=== PATIENT | female | born 1990 | race Caucasian/White ===

== ENCOUNTER 2019-03-01 07:18 | Inpatient (IN) | payer MEDICAID ==
[2019-03-01] MEDS ORDERED: Nalbuphine 20 MG/ML 1 ML Syringe IVPUSH PRN (07:20)
[2019-03-01] MEDS ORDERED: Ondansetron 4 MG/2 ML SDV IVPUSH PRN (07:20)
[2019-03-01] MEDS ORDERED: Sodium Chloride 0.9% 10 ML Syringe FLUSH PRN (07:20)
--- NOTE | 2019-03-01 07:23 | PCM.LDHP ---
L&D History of Present Illness - General Date of Service: 03/01/19 Admit Problem/Dx: Patient Status Order with Admit Dx/Problem 03/01/19 07:20 Patient Status [ADT] Routine Admission Diagnosis/Problem Admission Diagnosis/Problem Normal in third trimester Source of Information: Patient History Limitations: Reports: No Limitations - History of Present Illness Introduction:: Patient is a 28 y/o at 39 1/7 wks who presents for elective IOL. Doing well today. No major concerns or complaints - Related Data Allergies/Adverse Reactions: Allergies Allergy/AdvReac Type Severity Reaction Status Date / Time No Known Allergies Allergy Verified 03/01/19 09:54 Past Medical History - Past Health History Medical/Surgical History: Denies Medical/Surgical History [employer] History: Reports: : 2 Para: 1 LMP (Approximate): Social & Family History - Tobacco Use Smoking Status *Q: Never Smoker - Alcohol Use Alcohol Use History: No - Recreational Drug Use Recreational Drug Use: No H&P Review of Systems - Review of Systems: Review Of Systems: See Below General: Reports: No Symptoms Pulmonary: Reports: No Symptoms Cardiovascular: Reports: No Symptoms Gastrointestinal: Reports: No Symptoms Genitourinary: Reports: No Symptoms Musculoskeletal: Reports: No Symptoms Psychiatric: Reports: No Symptoms Neurological: Reports: No Symptoms L&D Exam - Exam Exam: See Below - OB Specific Contraction Intensity: Irritability Movement: Active Heart Tones: Present Heart Tones per Min: 135 Heart Rate (FHR) Variability: Moderate (6-25 bmp) Presentation: Vertex - Romero Score Romero Score Cervix Position: Posterior Romero Score Consistency: Medium Romero Score Effacement: 51-70% Romero Score Dilation: 3-4 cm Romero Score Infant's Station: -2 Romero Score Total: 6 - Exam General: Alert, Oriented, Cooperative Lungs: Clear to Auscultation, Normal Respiratory Effort Cardiovascular: Regular Rate, Regular Rhythm GI/Abdominal Exam: Soft, Non-Tender Genitourinary: Normal external exam Extremities: Normal Inspection Skin: Warm, Dry, Intact - Patient Data Result Diagrams: 03/01/19 07:35 - Problem List (1) 39 weeks gestation of SNOMED Code(s): 13928814 ICD Code: Z3A.39 - 39 WEEKS GESTATION OF Status: Acute Current Visit: Yes Problem List Initiated/Reviewed/Updated: Yes Orders Last 24hrs: Active Orders 24 hr Category Date Time Status Patient Status [ADT] Routine ADT 03/01/19 07:20 Ordered Activity as Tolerated [RC] PFP Care 03/01/19 07:20 Ordered Communication Order [RC] ASDIRECTED Care 03/01/19 07:20 Ordered Communication Order [RC] ASDIRECTED Care 03/01/19 07:20 Ordered Communication Order [RC] ASDIRECTED Care 03/01/19 07:20 Ordered Heart Tones [RC] ASDIRECTED Care 03/01/19 07:21 Ordered Monitoring [RC] INTERMITTENT Care 03/01/19 07:20 Ordered Non Stress Test [RC] PER UNIT ROUTINE Care 03/01/19 07:20 Ordered Non Stress Test [RC] PER UNIT ROUTINE Care 03/01/19 07:20 Ordered Notify Provider [RC] ASDIRECTED Care 03/01/19 07:20 Ordered Notify Provider [RC] PRN Care 03/01/19 07:20 Ordered Peripheral IV Care [RC] . DIRECTED Care 03/01/19 07:21 Ordered Vaginal Exam [RC] ASDIRECTED Care 03/01/19 07:20 Ordered Vital Signs [RC] PER UNIT ROUTINE Care 03/01/19 07:20 Ordered Regular Diet [DIET] Diet 03/01/19 Breakfast Ordered CBC W/O DIFF,HEMOGRAM [HEME] Routine Lab 03/01/19 07:20 Ordered RAPID PLASMA REAGIN,RPR [CHEM] Routine Lab 03/01/19 07:20 Ordered TYPE AND SCREEN [BBK] Routine Lab 03/01/19 07:20 Ordered Lactated Ringers [Ringers, Lactated] 1,000 ml Med 03/01/19 07:30 Ordered IV ASDIRECTED Nalbuphine [Nubain] Med 03/01/19 07:20 Ordered 10 mg IVPUSH Q2H PRN Ondansetron [Zofran] Med 03/01/19 07:20 Ordered 4 mg IVPUSH Q4H PRN Oxytocin/Lactated Ringers [Pitocin in LR 10 Units/1,000 Med 03/01/19 07:30 Ordered ML] 10 unit in 1,000 ml IV .CONTINUOUS Oxytocin/Lactated Ringers [Pitocin in LR 10 Units/1,000 Med 03/01/19 07:30 Ordered ML] 10 unit in 1,000 ml IV TITRATE Sodium Chloride 0.9% [Saline Flush] Med 03/01/19 07:20 Ordered 10 ml FLUSH ASDIRECTED PRN Electronic Heart Tones Ext w TOCO [WOMSER] Oth 03/01/19 07:20 Ordered Routine Electronic Heart Tones Internal [WOMSER] Per Unit Ot 03/01/19 07:20 Ordered Routine Peripheral IV Insertion Adult [OM.PC] Routine Oth 03/01/19 07:20 Ordered Resuscitation Status Routine Resus Stat 03/01/19 07:20 Ordered Assessment/Plan Comment:: 28 y/o at 39 1/7 wks presents for IOL * Labs * GBS negative * Pitocin and AROM for IOL * Pain management per patient preference * Anticipate
[2019-03-01] MEDS ORDERED: Oxytocin/Lactated Ringers 10 UNIT/1,000 ML BAG IV SCH ×2 (07:30→10:00)
[2019-03-01] MEDS: Lactated Ringers 1,000 ML IV SCH ×2 (10:14→12:55)
[2019-03-01] MEDS ORDERED: fentaNYL 100 MCG/2 ML SDV EPIDUR PRN (12:51)
[2019-03-01] MEDS ORDERED: ePHEDrine 50 MG/ML SDV IVPUSH PRN (12:51)
[2019-03-01] MEDS ORDERED: diphenhydrAMINE 50 MG/ML SDV IVPUSH PRN (12:51)
[2019-03-01] MEDS ORDERED: fentaNYL/Bupivacaine-NS 2 MCG/ML-0.125%/PF 100 ML Bag EPIDUR ONE (12:51)
--- NOTE | 2019-03-01 13:38 | PCM.PREANE ---
Preanesthetic Assessment - Anesthesia/Transfusion/Family Hx Anesthesia History: No Prior Anesthesia Type of Anesthesia Reaction: Unknown Family History of Anesthesia Reaction: No Transfusion History: No Prior Transfusion(s) Intubation History: Unknown - Review of Systems General: No Symptoms Pulmonary: No Symptoms Cardiovascular: No Symptoms Gastrointestinal: No Symptoms Neurological: No Symptoms Other: Reports: None - Physical Assessment NPO Status Date: 03/01/19 NPO Status Time: 00:00 Pulse: 72 O2 Sat by Pulse Oximetry: 100 Respiratory Rate: 20 Blood Pressure: 128/74 Height: 1.73 m Weight: 87.453 kg - Lab Values: Laboratory Last Values WBC 9.09 K/mm3 (3.98-10.04) 03/01/19 07:35 RBC 4.17 M/mm3 (3.98-5.22) 03/01/19 07:35 Hgb 11.7 gm/L (11.2-15.7) 03/01/19 07:35 Hct 35.1 % (34.1-44.9) 03/01/19 07:35 MCV 84.2 fl (79.4-94.8) 03/01/19 07:35 MCH 28.1 pg (25.6-32.2) 03/01/19 07:35 MCHC 33.3 g/dl (32.2-35.5) 03/01/19 07:35 RDW Std Deviation 42.5 fL (36.4-46.3) 03/01/19 07:35 Plt Count 157 K/mm3 (182-369) L 03/01/19 07:35 MPV 10.2 fl (9.4-12.3) 03/01/19 07:35 Blood Type O POSITIVE 03/01/19 07:35 Gel Antibody Screen Negative 03/01/19 07:35 - Allergies Allergies/Adverse Reactions: Allergies Allergy/AdvReac Type Severity Reaction Status Date / Time No Known Allergies Allergy Verified 03/01/19 09:54 PreAnesthesia Questionnaire - CURRENT (IN HOUSE) MEDS Current Meds: Current Medications Diphenhydramine HCl (Benadryl) 25 mg IVPUSH Q6H PRN PRN Reason: Pruritis Ephedrine Sulfate (Ephedrine Sulfate) 5 mg IVPUSH ONETIME PRN PRN Reason: Hypotension Fentanyl (Sublimaze) 100 mcg EPIDUR Q3H PRN PRN Reason: Pain Lactated Ringer's (Ringers, Lactated) 1,000 mls @ 40 mls/hr IV ASDIRECTED CELSA Last Admin: 03/01/19 12:55 Dose: 40 mls/hr Oxytocin/Lactated Ringer's (Pitocin In Lr 10 Units/1,000 Ml) 10 unit in 1,000 mls @ 12 mls/hr IV TITRATE CELSA; Protocol Last Titration: 03/01/19 12:47 Dose: 2 munits/min, 12 mls/hr Oxytocin/Lactated Ringer's (Pitocin In Lr 10 Units/1,000 Ml) 10 unit in 1,000 mls @ 500 mls/hr IV .CONTINUOUS CELSA Nalbuphine HCl (Nubain) 10 mg IVPUSH Q2H PRN PRN Reason: pain Ondansetron HCl (Zofran) 4 mg IVPUSH Q4H PRN PRN Reason: Nausea/Vomiting Sodium Chloride (Saline Flush) 10 ml FLUSH ASDIRECTED PRN PRN Reason: Keep Vein Open Discontinued Medications Fentanyl/Bupivacaine HCl (Vfojjnyg-Zdimp-Zu 2 Mcg/Ml-0.125%) 100 ml EPIDUR ONETIME ONE Stop: 03/01/19 12:52
--- NOTE | 2019-03-01 16:36 | PCM.DEL ---
L & D Note - General Info Date of Service: 03/01/19 - Delivery Note Labor: Induced by ARM, Induced by Oxytocin Delivery Outcome: Livebirth Infant Delivery Method: Spontaneous Vaginal Delivery-Single Infant Delivery Mode: Spontaneous Presentation: Left Occiput Anterior (JENNIFER) Nuchal Cord: None Anesthesia Type: Epidural Amniotic Fluid Description: Clear Episiotomy Type: None Laceration: 2nd Degree, Perineal Suture type: Vicryl Suture size: 2-0 Placenta: Intact, Spontaneous Cord: 3 Vessels Estimated Blood Loss: 300 Resuscitation Needed: Yes [place]: Bulb Syringe, Stimulated, Warmed, [place] Used, Warmer Used Delivery Comments (Free Text/Narrative):: Patient found to be complete and began pushing. With maternal pushing effort head delivered from JENNIFER presentation. No nuchal cord present. With gentle downward traction the shoulders and body delivered. placed on maternal abdomen. Cord clamped and cut. Placenta allowed time to separate and expelled intact. Inspection of the perineum showed a 2nd degree laceration which was repaired with a 2-0 vicryl in the typical fashion. - General Info Date of Service: 03/01/19 - Patient Data Vitals - Most Recent: Last Vital Signs Temp Pulse 72 03/01/19 13:37 Resp 20 03/01/19 13:37 BP 128/74 03/01/19 13:37 Pulse Ox 100 03/01/19 13:37 Weight - Most Recent: 87.453 kg Lab Results Last 24 Hours: Laboratory Results - last 24 hr 03/01/19 03/01/19 Range/Units 07:35 07:35 WBC 9.09 (3.98-10.04) K/mm3 RBC 4.17 (3.98-5.22) M/mm3 Hgb 11.7 (11.2-15.7) gm/L Hct 35.1 (34.1-44.9) % MCV 84.2 (79.4-94.8) fl MCH 28.1 (25.6-32.2) pg MCHC 33.3 (32.2-35.5) g/dl RDW Std Deviation 42.5 (36.4-46.3) fL Plt Count 157 L (182-369) K/mm3 MPV 10.2 (9.4-12.3) fl Blood Type O POSITIVE Gel Antibody Screen Negative Med Orders - Current: Current Medications Diphenhydramine HCl (Benadryl) 25 mg IVPUSH Q6H PRN PRN Reason: Pruritis Ephedrine Sulfate (Ephedrine Sulfate) 5 mg IVPUSH ONETIME PRN PRN Reason: Hypotension Fentanyl (Sublimaze) 100 mcg EPIDUR Q3H PRN PRN Reason: Pain Lactated Ringer's (Ringers, Lactated) 1,000 mls @ 40 mls/hr IV ASDIRECTED CELSA Last Admin: 03/01/19 12:55 Dose: 40 mls/hr Oxytocin/Lactated Ringer's (Pitocin In Lr 10 Units/1,000 Ml) 10 unit in 1,000 mls @ 12 mls/hr IV TITRATE CELSA; Protocol Last Titration: 03/01/19 13:37 Dose: 0 munits/min, 0 mls/hr Oxytocin/Lactated Ringer's (Pitocin In Lr 10 Units/1,000 Ml) 10 unit in 1,000 mls @ 500 mls/hr IV .CONTINUOUS CELSA Nalbuphine HCl (Nubain) 10 mg IVPUSH Q2H PRN PRN Reason: pain Ondansetron HCl (Zofran) 4 mg IVPUSH Q4H PRN PRN Reason: Nausea/Vomiting Sodium Chloride (Saline Flush) 10 ml FLUSH ASDIRECTED PRN PRN Reason: Keep Vein Open Discontinued Medications Fentanyl/Bupivacaine HCl (Csokufef-Vpxlr-Jc 2 Mcg/Ml-0.125%) 100 ml EPIDUR ONETIME ONE Stop: 03/01/19 12:52 - Problem List & Annotations (1) Vaginal delivery SNOMED Code(s): 368436778 Code(s): O80 - ENCOUNTER FOR FULL-TERM UNCOMPLICATED DELIVERY Status: Acute Current Visit: Yes (2) 39 weeks gestation of SNOMED Code(s): 08211586 Code(s): Z3A.39 - 39 WEEKS GESTATION OF Status: Acute Current Visit: Yes - Problem List Review Problem List Initiated/Reviewed/Updated: Yes - My Orders Last 24 Hours: My Active Orders 03/01/19 07:20 Patient Status [ADT] Routine Activity as Tolerated [RC] PFP Communication Order [RC] ASDIRECTED Communication Order [RC] ASDIRECTED Communication Order [RC] ASDIRECTED Monitoring [RC] INTERMITTENT Non Stress Test [RC] PER UNIT ROUTINE Non Stress Test [RC] PER UNIT ROUTINE Notify Provider [RC] ASDIRECTED Notify Provider [RC] PRN Vaginal Exam [RC] ASDIRECTED Vital Signs [RC] PER UNIT ROUTINE Nalbuphine [Nubain] 10 mg IVPUSH Q2H PRN Ondansetron [Zofran] 4 mg IVPUSH Q4H PRN Sodium Chloride 0.9% [Saline Flush] 10 ml FLUSH ASDIRECTED PRN Electronic Heart Tones Ext w TOCO [WOMSER] Routine Electronic Heart Tones Internal [WOMSER] Per Unit Routine Peripheral IV Insertion Adult [OM.PC] Routine Resuscitation Status Routine 03/01/19 07:21 Heart Tones [RC] ASDIRECTED Peripheral IV Care [RC] . DIRECTED 03/01/19 07:30 Lactated Ringers [Ringers, Lactated] 1,000 ml IV ASDIRECTED Oxytocin/Lactated Ringers [Pitocin in LR 10 Units/1,000 ML] 10 unit in 1,000 ml IV .CONTINUOUS 03/01/19 07:35 RAPID PLASMA REAGIN,RPR [CHEM] Routine 03/01/19 08:46 PATIENT RETYPE [BBK] Routine 03/01/19 10:00 Oxytocin/Lactated Ringers [Pitocin in LR 10 Units/1,000 ML] 10 unit in 1,000 ml IV TITRATE 03/01/19 16:34 Patient Status Manage Transfer [TRANSFER] Routine 03/01/19 Breakfast Regular Diet [DIET] - Assessment Assessment:: 28 y/o G2 now P2002 PPD#0 from at 39 1/7 wks - Plan Plan:: * Routine cares * Encourage breast feeding * Discharge home in 1-2 days
[2019-03-01] MEDS ORDERED: Acetaminophen 325 MG Tab PO PRN (17:41)
[2019-03-01] MEDS ORDERED: Witch Hazel Medicated Pads 40/Jar TOP PRN (17:41)
[2019-03-01] MEDS ORDERED: Lanolin 100% Cream 7 GM Tube TOP PRN (17:41)
[2019-03-01] MEDS ORDERED: Benzocaine/Menthol 20%-0.5% Spray 56 GM Canister TOP PRN (17:41)
[2019-03-01] MEDS: Docusate Sodium 100 MG Cap PO PRN (20:54)
[2019-03-01] MEDS: Ibuprofen 600 MG Tab PO PRN (20:54)
[2019-03-01] MEDS ORDERED: Bupivacaine 0.25% 10 ML SDV ONE (22:00)
[2019-03-02] MEDS: Ibuprofen 600 MG Tab PO PRN ×3 (07:04→16:33)
--- NOTE | 2019-03-02 07:07 | PCM.PNPP ---
- General Info Date of Service: 03/02/19 Functional Status: Reports: Pain Controlled, Tolerating Diet, Ambulating, Urinating - Review of Systems General: Reports: No Symptoms Pulmonary: Reports: No Symptoms Cardiovascular: Reports: No Symptoms Gastrointestinal: Reports: No Symptoms Genitourinary: Reports: No Symptoms Musculoskeletal: Reports: No Symptoms - Patient Data Vital Signs - Most Recent: Last Vital Signs Temp 37.1 C 03/02/19 03:24 Pulse 66 03/02/19 03:24 Resp 16 03/02/19 03:24 BP 110/63 03/02/19 03:24 Pulse Ox 98 03/02/19 03:24 Weight - Most Recent: 87.453 kg I&O - Last 24 Hours: Intake & Output 03/01/19 03/02/19 03/02/19 22:59 06:59 14:59 Intake Total 4000 400 Balance 4000 400 Lab Results - Last 24 Hours: Laboratory Results - last 24 hr 03/01/19 03/01/19 03/01/19 Range/Units 07:35 07:35 07:35 WBC 9.09 (3.98-10.04) K/mm3 RBC 4.17 (3.98-5.22) M/mm3 Hgb 11.7 (11.2-15.7) gm/L Hct 35.1 (34.1-44.9) % MCV 84.2 (79.4-94.8) fl MCH 28.1 (25.6-32.2) pg MCHC 33.3 (32.2-35.5) g/dl RDW Std Deviation 42.5 (36.4-46.3) fL Plt Count 157 L (182-369) K/mm3 MPV 10.2 (9.4-12.3) fl RPR Non-reactive (NONREACTIVE) Blood Type O POSITIVE Gel Antibody Screen Negative Med Orders - Current: Current Medications Acetaminophen (Tylenol) 650 mg PO Q4H PRN PRN Reason: mild pain or fever Benzocaine/Menthol (Dermoplast Pain Relief [place]) 0 gm TOP ASDIRECTED PRN PRN Reason: Perineal Comfort Measure Last Admin: 03/01/19 20:54 Dose: 1 canister Docusate Sodium (Colace) 100 mg PO BID PRN PRN Reason: Constipation Last Admin: 04/23/19 20:54 Dose: 100 mg Emollient Ointment (Lansinoh Hpa) 0 gm TOP ASDIRECTED PRN PRN Reason: Sore Nipples Ibuprofen (Motrin) 600 mg PO Q4H PRN PRN Reason: Mild pain or fever Last Admin: 03/02/19 07:04 Dose: 600 mg Witch Kitty (Tucks) 1 pad TOP ASDIRECTED PRN PRN Reason: Pain Last Admin: 03/01/19 20:54 Dose: 1 tub Discontinued Medications Diphenhydramine HCl (Benadryl) 25 mg IVPUSH Q6H PRN PRN Reason: Pruritis Ephedrine Sulfate (Ephedrine Sulfate) 5 mg IVPUSH ONETIME PRN PRN Reason: Hypotension Fentanyl (Sublimaze) 100 mcg EPIDUR Q3H PRN PRN Reason: Pain Last Admin: 03/01/19 13:00 Dose: 100 mcg Fentanyl/Bupivacaine HCl (Cyadiuzw-Dkmfv-Ei 2 Mcg/Ml-0.125%) 100 ml EPIDUR ONETIME ONE Stop: 03/01/19 12:52 Last Admin: 03/01/19 13:00 Dose: 100 ml Lactated Ringer's (Ringers, Lactated) 1,000 mls @ 40 mls/hr IV ASDIRECTED CELSA Last Admin: 03/01/19 12:55 Dose: 40 mls/hr Oxytocin/Lactated Ringer's (Pitocin In Lr 10 Units/1,000 Ml) 10 unit in 1,000 mls @ 12 mls/hr IV TITRATE CELSA; Protocol Last Titration: 03/01/19 13:37 Dose: 0 munits/min, 0 mls/hr Oxytocin/Lactated Ringer's (Pitocin In Lr 10 Units/1,000 Ml) 10 unit in 1,000 mls @ 500 mls/hr IV .CONTINUOUS CELSA Nalbuphine HCl (Nubain) 10 mg IVPUSH Q2H PRN PRN Reason: pain Ondansetron HCl (Zofran) 4 mg IVPUSH Q4H PRN PRN Reason: Nausea/Vomiting Sodium Chloride (Saline Flush) 10 ml FLUSH ASDIRECTED PRN PRN Reason: Keep Vein Open - Interaction Infant Disposition, : [place] in Room with Family Interaction: Holding Infant Infant Feeding: Breastfed ; Nursed Well Support Person: Significant Other - Recovery Exam Fundal Tone: Firm Fundal Level: 1 Fingerbreadths Below Umbilicus Fundal Placement: Midline Lochia Amount: Small Lochia Color: Rubra/Red Perineum Description: Other (see below) Other Perinuem Description: 2nd degree lac with repair Episiotomy/Laceration: Approximated Bladder Status: Voiding - Exam General: Alert, Oriented, Cooperative GI/Abdominal Exam: Soft, Non-Tender Extremities: Normal Inspection Skin: Warm, Dry, Intact - Problem List & Annotations (1) Vaginal delivery SNOMED Code(s): 649783621 Code(s): O80 - ENCOUNTER FOR FULL-TERM UNCOMPLICATED DELIVERY Status: Acute Current Visit: Yes (2) 39 weeks gestation of SNOMED Code(s): 80927289 Code(s): Z3A.39 - 39 WEEKS GESTATION OF Status: Acute Current Visit: Yes - Problem List Review Problem List Initiated/Reviewed/Updated: Yes - My Orders Last 24 Hours: My Active Orders 03/01/19 07:20 Monitoring [RC] INTERMITTENT Vaginal Exam [RC] ASDIRECTED Resuscitation Status Routine 03/01/19 07:21 Heart Tones [RC] ASDIRECTED Peripheral IV Care [RC] . DIRECTED 03/01/19 17:41 Activity as Tolerated [RC] PER UNIT ROUTINE Vital Signs [RC] 03,09,15,21 Acetaminophen [Tylenol] 650 mg PO Q4H PRN Benzocaine/Menthol [Dermoplast Pain Relief Hospers] See Dose Instructions TOP ASDIRECTED PRN Docusate Sodium [Colace] 100 mg PO BID PRN Ibuprofen [Motrin] 600 mg PO Q4H PRN Lanolin [Lansinoh HPA] See Dose Instructions TOP ASDIRECTED PRN Witch Kitty [Tucks] 1 pad TOP ASDIRECTED PRN Assess Lochia [WOMSER] Per Unit Routine Assess Uterine Involution [WOMSER] Per Unit Routine Breast Pump [WOMSER] Per Unit Routine Heat Therapy [OM.PC] PRN Ice Therapy [OM.PC] Per Unit Routine Perineal Care [OM.PC] Per Unit Routine Peripheral IV Discontinue [OM.PC] Routine Sitz Bath [OM.PC] Per Unit Routine 03/01/19 Dinner Regular Diet [DIET] 03/02/19 17:41 Heat Therapy [OM.PC] PRN - Assessment Assessment:: 28 y/o G2 now P2002 PPD#1 from at 39 1/7 wks - Plan Plan:: * Routine cares * Encourage breast feeding * Discharge home today vs tomorrow pending building cleaning supervisor recommendations for baby
--- NOTE | 2019-03-02 08:06 | PCM48HPAN ---
Post Anesthesia Note - EVALUATION WITHIN 48HRS OF ANESTHETIC Vital Signs in Normal Range: Yes Patient Participated in Evaluation: Yes Respiratory Function Stable: Yes Airway Patent: Yes Cardiovascular Function Stable: Yes Hydration Status Stable: Yes Pain Control Satisfactory: Yes Nausea and Vomiting Control Satisfactory: Yes Mental Status Recovered: Yes Pulse Rate: 66 Resp Rate: 16 Temperature: 98.8 F Blood Pressure: 110/63
[2019-03-02] MEDS: Docusate Sodium 100 MG Cap PO PRN (20:37)
--- NOTE | 2019-03-03 06:26 | PCM.DCSUM1 ---
Discharge Summary - Discharge Data Discharge Date: 03/03/19 Discharge Disposition: Home, Self-Care 01 Condition: Good - Discharge Diagnosis/Problem(s) (1) Vaginal delivery SNOMED Code(s): 816454947 ICD Code: O80 - ENCOUNTER FOR FULL-TERM UNCOMPLICATED DELIVERY Status: Acute Current Visit: Yes (2) 39 weeks gestation of SNOMED Code(s): 83714082 ICD Code: Z3A.39 - 39 WEEKS GESTATION OF Status: Acute Current Visit: Yes - Patient Summary/Data Complications: None Consults: None Recommended Follow-up Testing/Procedures: Follow up in 3 weeks for check Hospital Course: Patient is a 28-year-old at 39 and 1 who presented for elective induction of labor. This was done with Pitocin and AROM. She made good progression and underwent an uncomplicated vaginal delivery. Please see delivery note for full details. she did well and was discharged home on day #2 - Patient Instructions Diet: Regular Diet as Tolerated Activity: As Tolerated Activity, Other: Pelvic Rest for 6 weeks Driving: May Drive Today Showering/Bathing: May Shower Showering/Bathing, Other: May Bathe Notify Provider of: Fever, Increased Pain, Swelling and Redness, Drainage, Nausea and/or Vomiting - Discharge Plan *PRESCRIPTION DRUG MONITORING PROGRAM REVIEWED*: Not Applicable *COPY OF PRESCRIPTION DRUG MONITORING REPORT IN PATIENT DANITZA: Not Applicable Home Medications: Home Meds Docusate Sodium [Colace] 100 mg PO BID PRN cap 03/01/19 [Rx] Ibuprofen [Motrin] 600 mg PO Q4H PRN tablet 03/01/19 [Rx] Patient Handouts: Home Care Instructions for Mom, Tips for a Good Latch Referrals: Maru Stanley MD [Primary Care Provider] - (3 weeks for post check ) - Discharge Summary/Plan Comment DC Time >30 min.: No - Patient Data Vitals - Most Recent: Last Vital Signs Temp 36.7 C 03/03/19 02:58 Pulse 57 L 03/03/19 02:58 Resp 14 03/03/19 02:58 BP 108/46 L 03/03/19 02:58 Pulse Ox 98 03/03/19 02:58 Weight - Most Recent: 87.453 kg Med Orders - Current: Current Medications Acetaminophen (Tylenol) 650 mg PO Q4H PRN PRN Reason: mild pain or fever Benzocaine/Menthol (Dermoplast Pain Relief [place]) 0 gm TOP ASDIRECTED PRN PRN Reason: Perineal Comfort Measure Last Admin: 03/01/19 20:54 Dose: 1 canister Docusate Sodium (Colace) 100 mg PO BID PRN PRN Reason: Constipation Last Admin: 03/02/19 20:37 Dose: 100 mg Emollient Ointment (Lansinoh Hpa) 0 gm TOP ASDIRECTED PRN PRN Reason: Sore Nipples Ibuprofen (Motrin) 600 mg PO Q4H PRN PRN Reason: Mild pain or fever Last Admin: 03/02/19 16:33 Dose: 600 mg Witch Kitty (Tucks) 1 pad TOP ASDIRECTED PRN PRN Reason: Pain Last Admin: 03/01/19 20:54 Dose: 1 tub Discontinued Medications Bupivacaine HCl (Sensorcaine-Mpf 0.25%) 10 ml .ROUTE .STK-MED ONE Stop: 03/01/19 22:01 Diphenhydramine HCl (Benadryl) 25 mg IVPUSH Q6H PRN PRN Reason: Pruritis Ephedrine Sulfate (Ephedrine Sulfate) 5 mg IVPUSH ONETIME PRN PRN Reason: Hypotension Fentanyl (Sublimaze) 100 mcg EPIDUR Q3H PRN PRN Reason: Pain Last Admin: 03/01/19 13:00 Dose: 100 mcg Fentanyl/Bupivacaine HCl ([place]-Nkgch-Bs 2 Mcg/Ml-0.125%) 100 ml EPIDUR ONETIME ONE Stop: 03/01/19 12:52 Last Admin: 03/01/19 13:00 Dose: 100 ml Lactated Ringer's (Ringers, Lactated) 1,000 mls @ 40 mls/hr IV ASDIRECTED CELSA Last Admin: 03/01/19 12:55 Dose: 40 mls/hr Oxytocin/Lactated Ringer's (Pitocin In Lr 10 Units/1,000 Ml) 10 unit in 1,000 mls @ 12 mls/hr IV TITRATE CELSA; Protocol Last Titration: 03/01/19 13:37 Dose: 0 munits/min, 0 mls/hr Oxytocin/Lactated Ringer's (Pitocin In Lr 10 Units/1,000 Ml) 10 unit in 1,000 mls @ 500 mls/hr IV .CONTINUOUS CELSA Nalbuphine HCl (Nubain) 10 mg IVPUSH Q2H PRN PRN Reason: pain Ondansetron HCl (Zofran) 4 mg IVPUSH Q4H PRN PRN Reason: Nausea/Vomiting Sodium Chloride (Saline Flush) 10 ml FLUSH ASDIRECTED PRN PRN Reason: Keep Vein Open
--- NOTE | 2019-03-03 06:26 | PCM.PNPP ---
- General Info Date of Service: 03/03/19 Functional Status: Reports: Pain Controlled, Tolerating Diet, Ambulating, Urinating - Review of Systems General: Reports: No Symptoms Pulmonary: Reports: No Symptoms Cardiovascular: Reports: No Symptoms Gastrointestinal: Reports: No Symptoms Genitourinary: Reports: No Symptoms Musculoskeletal: Reports: No Symptoms Neurological: Reports: No Symptoms - Patient Data Vital Signs - Most Recent: Last Vital Signs Temp 36.7 C 03/03/19 02:58 Pulse 57 L 03/03/19 02:58 Resp 14 03/03/19 02:58 BP 108/46 L 03/03/19 02:58 Pulse Ox 98 03/03/19 02:58 Weight - Most Recent: 87.453 kg Med Orders - Current: Current Medications Acetaminophen (Tylenol) 650 mg PO Q4H PRN PRN Reason: mild pain or fever Benzocaine/Menthol (Dermoplast Pain Relief [place]) 0 gm TOP ASDIRECTED PRN PRN Reason: Perineal Comfort Measure Last Admin: 03/01/19 20:54 Dose: 1 canister Docusate Sodium (Colace) 100 mg PO BID PRN PRN Reason: Constipation Last Admin: 03/02/19 20:37 Dose: 100 mg Emollient Ointment (Lansinoh Hpa) 0 gm TOP ASDIRECTED PRN PRN Reason: Sore Nipples Ibuprofen (Motrin) 600 mg PO Q4H PRN PRN Reason: Mild pain or fever Last Admin: 03/02/19 16:33 Dose: 600 mg Witch Kitty (Tucks) 1 pad TOP ASDIRECTED PRN PRN Reason: Pain Last Admin: 03/01/19 20:54 Dose: 1 tub Discontinued Medications Bupivacaine HCl (Sensorcaine-Mpf 0.25%) 10 ml .ROUTE .STK-MED ONE Stop: 03/01/19 22:01 Diphenhydramine HCl (Benadryl) 25 mg IVPUSH Q6H PRN PRN Reason: Pruritis Ephedrine Sulfate (Ephedrine Sulfate) 5 mg IVPUSH ONETIME PRN PRN Reason: Hypotension Fentanyl (Sublimaze) 100 mcg EPIDUR Q3H PRN PRN Reason: Pain Last Admin: 03/01/19 13:00 Dose: 100 mcg Fentanyl/Bupivacaine HCl ([place]ivb-Axjfn-Sg 2 Mcg/Ml-0.125%) 100 ml EPIDUR ONETIME ONE Stop: 03/01/19 12:52 Last Admin: 03/01/19 13:00 Dose: 100 ml Lactated Ringer's (Ringers, Lactated) 1,000 mls @ 40 mls/hr IV ASDIRECTED CELSA Last Admin: 03/01/19 12:55 Dose: 40 mls/hr Oxytocin/Lactated Ringer's (Pitocin In Lr 10 Units/1,000 Ml) 10 unit in 1,000 mls @ 12 mls/hr IV TITRATE CELSA; Protocol Last Titration: 03/01/19 13:37 Dose: 0 munits/min, 0 mls/hr Oxytocin/Lactated Ringer's (Pitocin In Lr 10 Units/1,000 Ml) 10 unit in 1,000 mls @ 500 mls/hr IV .CONTINUOUS CELSA Nalbuphine HCl (Nubain) 10 mg IVPUSH Q2H PRN PRN Reason: pain Ondansetron HCl (Zofran) 4 mg IVPUSH Q4H PRN PRN Reason: Nausea/Vomiting Sodium Chloride (Saline Flush) 10 ml FLUSH ASDIRECTED PRN PRN Reason: Keep Vein Open - Interaction Disposition, : [place] in Room with Family Interaction: Holding Feeding: Breastfed Infant; Nursed Well Support Person: Significant Other - Recovery Exam Fundal Tone: Firm Fundal Level: 2 Fingerbreadths Below Umbilicus Fundal Placement: Midline Lochia Amount: Small Lochia Color: Rubra/Red Perineum Description: Other (see below) Other Perinuem Description: 2nd degree lac with repair Episiotomy/Laceration: Approximated Bladder Status: Voiding Urinary Elimination: Voided - Exam General: Alert, Oriented, Cooperative GI/Abdominal Exam: Soft, Non-Tender Extremities: Normal Inspection Skin: Warm, Dry, Intact - Problem List & Annotations (1) Vaginal delivery SNOMED Code(s): 712447585 Code(s): O80 - ENCOUNTER FOR FULL-TERM UNCOMPLICATED DELIVERY Status: Acute Current Visit: Yes (2) 39 weeks gestation of SNOMED Code(s): 97041798 Code(s): Z3A.39 - 39 WEEKS GESTATION OF Status: Acute Current Visit: Yes - Problem List Review Problem List Initiated/Reviewed/Updated: Yes - Assessment Assessment:: 28 y/o G2 now P2002 PPD#2 from at 39 1/7 wks - Plan Plan:: * Routine cares * Encourage breast feeding * Discharge home today
== END 2019-03-03 08:50 | disposition home or self-care (01) | DRG 807 ==
LOC: JD.OB 07:18 → OBSVTOIN 16:12 → JD.OB 16:12 → EDSTATUS 03-07 07:15
PROVIDERS: ADMIT Obstetrics & Gynecology; ATTEND Obstetrics & Gynecology
PROC: 10E0XZZ Delivery of Products of Conception, External Approach (ICD-10-PCS; principal; 2019-03-01)
PROC: 0KQM0ZZ Repair Perineum Muscle, Open Approach (ICD-10-PCS; 2019-03-01)
PROC: 10907ZC Drainage of Amniotic Fluid, Therapeutic from Products of Conception, Via Natural or Artificial Opening (ICD-10-PCS; 2019-03-01)
PROC: 3E033VJ Introduction of Other Hormone into Peripheral Vein, Percutaneous Approach (ICD-10-PCS; 2019-03-01)
PROC: 3E0R3BZ Introduction of Anesthetic Agent into Spinal Canal, Percutaneous Approach (ICD-10-PCS; 2019-03-01)
PROC: 00HU33Z Insertion of Infusion Device into Spinal Canal, Percutaneous Approach (ICD-10-PCS; 2019-03-01)
DX: O70.1 Second degree perineal laceration during delivery (principal); Z37.0 Single live birth; Z3A.39 39 weeks gestation of pregnancy
CPT/HCPCS: 01967; 36415; 51702; 59025; 59409; 85027; 86592; 86850; 86900; 86901; A9270-GY; J2590; J3010; J3490; J7120